=== PATIENT | male | born 1985 | race Caucasian/White ===

== ENCOUNTER 2019-08-05 13:34 | Emergency (ER) | payer OTHER ==
[~2019-08-05] VITALS: Ht 170.2 cm; Wt 63.5 kg
[~2019-08-05 13:34] MED LIST: ALBU90OI INH; AMOCLA875 PO; BUPR100ER PO; Bactrim Ds Tab1 EACH PO; CEPH500 PO; CIPR500 PO; CLIN300 PO; CRUTCH4 USE; Crutch1 EACH MISC; FAMO40 PO; HYDACE5 PO; IBUP800 PO; MESA400ER PO; META800 PO; METR500 PO; ONDA4 PO; ONDA4ODT MM; OXYACE5T PO; PENVK250 PO; PENVK500 PO; PROM25 PO; Percocet 5-3251 EACH PO; RXONDA4ODT MM; RXSULTRIDS PO; RXTRAM50 PO; SULTRIDS PO; SULTRISS PO; TRAM50 PO; TRAZ50
[2019-08-05] MEDS ORDERED: Bactrim Ds Tab1 EACH PO (16:21)
[2019-08-05] MEDS ORDERED: IBUP800 PO (16:21)
[2019-08-05] MEDS ORDERED: ONDA4ODT MM (16:21)
== END 2019-08-05 16:25 | disposition home or self-care (01) ==
LOC: ER 13:34
DX: L03.011 Cellulitis of right finger (principal); Z91.030 Bee allergy status; I10 Essential (primary) hypertension; F17.220 Nicotine dependence, chewing tobacco, uncomplicated
CPT/HCPCS: 99283

== ENCOUNTER 2020-02-18 19:25 | Emergency (ER) | payer SELFPAY ==
[~2020-02-18] VITALS: Ht 170.2 cm; Wt 63.5 kg
[2020-02-18 20:08] LABS: BASOPHILS ABSOLUTE AUTO 0.02 K/mm3 (0.00-0.23); BASOPHILS PERCENT AUTO 0 % (0-2); EOSINOPHILS ABSOLUTE AUTO 0.24 K/mm3 (0.00-0.68); EOSINOPHILS PERCENT AUTO 4 % (0-6); Hematocrit 43.2 % (37.0-53.0); Hemoglobin 14.2 g/dL (13.5-17.5); IMMATURE GRAN ABSOLUTE AUTO 0.02 K/mm3 (0.00-0.10); IMMATURE GRAN PERCENT AUTO 0 % (0-1); LYMPHOCYTES ABSOLUTE AUTO 1.83 K/mm3 (0.84-5.20); LYMPHOCYTES PERCENT AUTO 28 % (21-46); MONOCYTES ABSOLUTE AUTO 0.55 K/mm3 (0.16-1.47); MONOCYTES PERCENT AUTO 9 % (4-13); Mean Corpuscular HGB 28.2 pg (26.0-34.0); Mean Corpuscular HGB Conc 32.9 g/dL (31.5-36.5); Mean Corpuscular Volume 86 fL (80-100); Mean Platelet Volume 9.9 fL (9.1-12.4); NEUTROPHILS PERCENT AUTO 59 % (41-73); Platelet Count 241 K/mm3 (150-400); RDW Coefficient Variation 13.2 % (11.7-14.2); RDW Standard Deviation 40.8 fL (35.1-46.3); Red Blood Cell Count 5.04 M/mm3 (4.30-5.90); White Blood Cell Count 6.46 K/mm3 (4.00-11.30)
[2020-02-18 20:28] LABS: Alanine Aminotransfer (ALT/SGP 45 U/L (12-78); Albumin, Blood 4.1 g/dL (3.4-5.0); Albumin/Globulin Ratio 0.8 (0.8-1.8); Alk Phos 79 U/L (50-136); Anion Gap 5 mmol/L (6-16); Aspartate Aminotrans (AST/SGOT 20 U/L (12-37); Bilirubin, Total 0.7 mg/dL (0.1-1.0); Blood Urea Nitrogen 17 mg/dL (8-24); Bun/Creatinine Ratio 20.7 (12.0-20.0); CO2, Blood 28 mmol/L (21-32); Calcium, Blood 9.2 mg/dL (8.5-10.1); Chloride, Blood 107 mmol/L (98-108); Creatinine, Blood 0.82 mg/dL (0.60-1.20); Globulin, Blood 4.9 g/dL (2.2-4.0); Glomerular Filtration Rate >60 (60-); Glucose, Blood 140 mg/dL (70-99); Potassium, Blood 3.7 mmol/L (3.5-5.5); Sodium, Blood 140 mmol/L (136-145)
[2020-02-18 20:38] LABS: Magnesium, Blood 2.4 mg/dL (1.6-2.4); Troponin I <0.015 ng/mL (0.000-0.040)
== END 2020-02-18 22:03 | disposition home or self-care (01) ==
LOC: ER 19:25
PROVIDERS: Emergency Medicine
DX: Z00.00 Encounter for general adult medical examination without abnormal findings (principal); F41.0 Panic disorder [episodic paroxysmal anxiety]; Z91.030 Bee allergy status; I10 Essential (primary) hypertension; F17.220 Nicotine dependence, chewing tobacco, uncomplicated
CPT/HCPCS: 36415; 71045; 80053; 83735; 84484; 85025; 93005; 93010; 99284-25

== ENCOUNTER 2020-02-24 21:08 | Emergency (ER) | payer SELFPAY ==
[~2020-02-24] VITALS: Ht 165.1 cm; Wt 68.0 kg
== END 2020-02-24 21:21 | disposition left against medical advice (07) ==
LOC: ER 21:08
DX: Z53.21 Procedure and treatment not carried out due to patient leaving prior to being seen by health care provider (principal)

== ENCOUNTER 2020-11-27 00:43 | Emergency (ER) | payer OTHER ==
[~2020-11-27] VITALS: Ht 170.2 cm; Wt 63.5 kg
== END 2020-11-27 01:42 ==
LOC: ER 00:43
DX: S09.90XA Unspecified injury of head, initial encounter (principal); Y04.0XXA Assault by unarmed brawl or fight, initial encounter
CPT/HCPCS: 70450; 71045; 72125; 73110; 90471; 93005; 93010; 99283-25

== ENCOUNTER 2022-11-02 19:16 | Emergency (ER) | payer MEDICAID ==
[~2022-11-02] VITALS: Ht 170.2 cm; Wt 79.4 kg
[2022-11-02 19:22] VITALS: BP 133/100
== END 2022-11-02 19:27 | disposition home or self-care (01) ==
LOC: ER 19:16
DX: F15.10 Other stimulant abuse, uncomplicated (principal); I10 Essential (primary) hypertension; F17.220 Nicotine dependence, chewing tobacco, uncomplicated; Z91.038 Other insect allergy status; Z91.030 Bee allergy status
CPT/HCPCS: 99283

== ENCOUNTER 2022-11-02 21:41 | Emergency (ER) | payer MEDICAID ==
[~2022-11-02] VITALS: Ht 170.2 cm; Wt 72.6 kg
[2022-11-02 22:06] VITALS: BP 143/92
== END 2022-11-02 23:58 | disposition home or self-care (01) ==
LOC: ER 21:41
DX: F15.10 Other stimulant abuse, uncomplicated (principal); R00.2 Palpitations; I10 Essential (primary) hypertension; F17.220 Nicotine dependence, chewing tobacco, uncomplicated
CPT/HCPCS: 99283

== ENCOUNTER 2022-11-08 13:46 | Emergency (ER) | payer SELFPAY ==
[~2022-11-08] VITALS: Ht 170.2 cm; Wt 70.3 kg
[2022-11-08 13:56] VITALS: BP 134/92
== END 2022-11-08 15:50 | disposition home or self-care (01) ==
LOC: ER 13:46
DX: R07.89 Other chest pain (principal); K59.00 Constipation, unspecified; I10 Essential (primary) hypertension; F17.200 Nicotine dependence, unspecified, uncomplicated; Z91.038 Other insect allergy status
CPT/HCPCS: 99284

== ENCOUNTER 2022-11-10 00:14 | Emergency (ER) | payer SELFPAY ==
[~2022-11-10] VITALS: Ht 170.2 cm; Wt 72.6 kg
[2022-11-10 00:40] VITALS: BP 131/85
== END 2022-11-10 01:17 | disposition home or self-care (01) ==
LOC: ER 00:14
DX: F15.122 Other stimulant abuse with intoxication with perceptual disturbance (principal); Z87.891 Personal history of nicotine dependence
CPT/HCPCS: 99282

== ENCOUNTER 2022-11-11 21:58 | Emergency (ER) | payer OTHER ==
[~2022-11-11] VITALS: Ht 165.1 cm; Wt 74.8 kg
[2022-11-11 22:03] VITALS: BP 127/100
== END 2022-11-11 22:23 | disposition home or self-care (01) ==
LOC: ER 21:58
DX: F41.9 Anxiety disorder, unspecified (principal); F15.10 Other stimulant abuse, uncomplicated; I10 Essential (primary) hypertension; F17.220 Nicotine dependence, chewing tobacco, uncomplicated; Z91.038 Other insect allergy status
CPT/HCPCS: A9270

== ENCOUNTER 2022-11-14 09:41 | Emergency (ER) | payer OTHER ==
[~2022-11-14] VITALS: Ht 170.2 cm; Wt 72.6 kg
[2022-11-14 11:02] LABS: BASOPHILS ABSOLUTE AUTO 0.03 K/mm3 (0.00-0.23); BASOPHILS PERCENT AUTO 1 % (0-2); EOSINOPHILS ABSOLUTE AUTO 0.28 K/mm3 (0.00-0.68); EOSINOPHILS PERCENT AUTO 5 % (0-6); Hematocrit 43.3 % (37.0-53.0); IMMATURE GRAN ABSOLUTE AUTO 0.01 K/mm3 (0.00-0.10); IMMATURE GRAN PERCENT AUTO 0 % (0-1); LYMPHOCYTES ABSOLUTE AUTO 1.26 K/mm3 (0.84-5.20); LYMPHOCYTES PERCENT AUTO 21 % (21-46); MONOCYTES PERCENT AUTO 10 % (4-13); Mean Corpuscular HGB 27.7 pg (26.0-34.0); Mean Corpuscular HGB Conc 32.3 g/dL (31.5-36.5); Mean Corpuscular Volume 86 fL (80-100); Mean Platelet Volume 10.2 fL (9.1-12.4); NEUTROPHILS ABSOLUTE AUTO 3.89 K/mm3 (1.96-9.15); NEUTROPHILS PERCENT AUTO 64 % (41-73); Platelet Count 253 K/mm3 (150-400); RDW Coefficient Variation 13.7 % (11.7-14.2); RDW Standard Deviation 43.2 fL (35.1-46.3); Red Blood Cell Count 5.05 M/mm3 (4.30-5.90); White Blood Cell Count 6.07 K/mm3 (4.00-11.30)
[2022-11-14 11:18] LABS: Albumin, Blood 3.8 g/dL (3.4-5.0); Albumin/Globulin Ratio 1.2 (0.8-1.8); Bilirubin, Total 0.8 mg/dL (0.1-1.0); Bun/Creatinine Ratio 23.6 (12.0-20.0); Calcium, Blood 8.8 mg/dL (8.5-10.1); Creatinine, Blood 0.89 mg/dL (0.60-1.20); Globulin, Blood 3.2 g/dL (2.2-4.0)
[2022-11-14 14:05] VITALS: BP 111/81
== END 2022-11-14 14:10 | disposition home or self-care (01) ==
LOC: ER 09:41
PROVIDERS: Physician Assistant
DX: F41.0 Panic disorder [episodic paroxysmal anxiety] (principal); F15.90 Other stimulant use, unspecified, uncomplicated; R07.89 Other chest pain; I10 Essential (primary) hypertension; F17.220 Nicotine dependence, chewing tobacco, uncomplicated; Z91.038 Other insect allergy status
CPT/HCPCS: 71045; 80053; 83880; 84484; 85025; 93005; 93010; J1790

== ENCOUNTER 2022-11-26 21:34 | Emergency (ER) | payer OTHER ==
[~2022-11-26] VITALS: Ht 167.6 cm; Wt 72.6 kg
[2022-11-26 21:41] VITALS: BP 133/93
== END 2022-11-26 22:15 | disposition home or self-care (01) ==
LOC: ER 21:34
DX: F41.9 Anxiety disorder, unspecified (principal); F15.90 Other stimulant use, unspecified, uncomplicated; R07.81 Pleurodynia; I10 Essential (primary) hypertension; F17.220 Nicotine dependence, chewing tobacco, uncomplicated; Z91.030 Bee allergy status
CPT/HCPCS: 99283

== ENCOUNTER 2022-12-23 13:05 | Emergency (ER) | payer OTHER ==
[~2022-12-23] VITALS: Ht 167.6 cm; Wt 65.8 kg
[2022-12-23 13:49] LABS: BASOPHILS ABSOLUTE AUTO 0.03 K/mm3 (0.00-0.23); BASOPHILS PERCENT AUTO 0 % (0-2); EOSINOPHILS ABSOLUTE AUTO 0.18 K/mm3 (0.00-0.68); EOSINOPHILS PERCENT AUTO 2 % (0-6); Hematocrit 40.7 % (37.0-53.0); Hemoglobin 13.8 g/dL (13.5-17.5); IMMATURE GRAN ABSOLUTE AUTO 0.02 K/mm3 (0.00-0.10); IMMATURE GRAN PERCENT AUTO 0 % (0-1); LYMPHOCYTES ABSOLUTE AUTO 1.89 K/mm3 (0.84-5.20); LYMPHOCYTES PERCENT AUTO 24 % (21-46); MONOCYTES ABSOLUTE AUTO 0.78 K/mm3 (0.16-1.47); MONOCYTES PERCENT AUTO 10 % (4-13); Mean Corpuscular HGB 28.9 pg (26.0-34.0); Mean Corpuscular HGB Conc 33.9 g/dL (31.5-36.5); Mean Corpuscular Volume 85 fL (80-100); NEUTROPHILS ABSOLUTE AUTO 5.04 K/mm3 (1.96-9.15); NEUTROPHILS PERCENT AUTO 63 % (41-73); Platelet Count 287 K/mm3 (150-400); RDW Coefficient Variation 13.3 % (11.7-14.2); RDW Standard Deviation 41.4 fL (35.1-46.3); Red Blood Cell Count 4.78 M/mm3 (4.30-5.90); White Blood Cell Count 7.94 K/mm3 (4.00-11.30)
[2022-12-23 13:51] VITALS: BP 126/75
[2022-12-23 14:12] LABS: Albumin, Blood 3.8 g/dL (3.4-5.0); Albumin/Globulin Ratio 1.1 (0.8-1.8); Bilirubin, Total 0.9 mg/dL (0.1-1.0); Bun/Creatinine Ratio 22.5 (12.0-20.0); Calcium, Blood 8.9 mg/dL (8.5-10.1); Creatinine, Blood 1.02 mg/dL (0.60-1.20); Globulin, Blood 3.4 g/dL (2.2-4.0); Potassium, Blood 3.5 mmol/L (3.5-5.5); Total Protein, Blood 7.2 g/dL (6.4-8.2)
== END 2022-12-23 15:40 | disposition home or self-care (01) ==
LOC: ER 13:05
PROVIDERS: Emergency Medicine
DX: R07.9 Chest pain, unspecified (principal); F15.129 Other stimulant abuse with intoxication, unspecified; F17.210 Nicotine dependence, cigarettes, uncomplicated; Z91.030 Bee allergy status; Z91.09 Other allergy status, other than to drugs and biological substances
CPT/HCPCS: 36415; 71045; 80053; 83880; 84484; 85025; 93005; 93010; 99284-25; J1885

== ENCOUNTER 2022-12-27 14:13 | Emergency (ER) | payer OTHER ==
[~2022-12-27] VITALS: Ht 172.7 cm; Wt 81.7 kg
[2022-12-27 14:28] VITALS: BP 152/104
== END 2022-12-27 15:31 | disposition home or self-care (01) ==
LOC: ER 14:13
DX: F15.129 Other stimulant abuse with intoxication, unspecified (principal); Z91.030 Bee allergy status; F17.210 Nicotine dependence, cigarettes, uncomplicated
CPT/HCPCS: 93005; 93010; 99283-25

== ENCOUNTER 2023-01-22 10:39 | Emergency (ER) | payer OTHER ==
[~2023-01-22] VITALS: Ht 170.2 cm; Wt 68.0 kg
[2023-01-22 10:43] VITALS: BP 125/96
== END 2023-01-22 11:01 | disposition home or self-care (01) ==
LOC: ER 10:39
DX: F15.229 Other stimulant dependence with intoxication, unspecified (principal); F17.210 Nicotine dependence, cigarettes, uncomplicated; Z91.030 Bee allergy status
CPT/HCPCS: 99283

== ENCOUNTER 2023-03-03 21:16 | Emergency (ER) | payer OTHER ==
[~2023-03-03] VITALS: Ht 170.2 cm; Wt 72.6 kg
[2023-03-03 21:22] VITALS: BP 157/109
== END 2023-03-03 21:30 | disposition home or self-care (01) ==
LOC: ER 21:16
DX: S05.11XA Contusion of eyeball and orbital tissues, right eye, initial encounter (principal); S09.90XA Unspecified injury of head, initial encounter; I10 Essential (primary) hypertension; Z91.030 Bee allergy status; Y04.8XXA Assault by other bodily force, initial encounter
CPT/HCPCS: 99282

== ENCOUNTER 2023-04-07 18:45 | Emergency (ER) | payer OTHER ==
[~2023-04-07] VITALS: Ht 172.7 cm; Wt 74.8 kg
[2023-04-07 18:54] VITALS: BP 125/82
== END 2023-04-07 19:00 | disposition home or self-care (01) ==
LOC: ER 18:45
DX: R51.9 Headache, unspecified (principal); I10 Essential (primary) hypertension; Z91.030 Bee allergy status
CPT/HCPCS: 99282

== ENCOUNTER 2023-04-12 11:06 | Emergency (ER) | payer OTHER ==
[~2023-04-12] VITALS: Ht 170.2 cm; Wt 68.0 kg
[2023-04-12 11:50] VITALS: BP 107/90
== END 2023-04-12 12:45 | disposition left against medical advice (07) ==
LOC: ER 11:06
DX: R07.9 Chest pain, unspecified (principal); F15.90 Other stimulant use, unspecified, uncomplicated; Z53.21 Procedure and treatment not carried out due to patient leaving prior to being seen by health care provider
CPT/HCPCS: 71046; 93005; 93010; 99282-25

== ENCOUNTER 2023-04-12 15:11 | Emergency (ER) | payer OTHER | END 2023-04-12 15:25 | disposition left against medical advice (07) | LOC: ER 15:11 | DX: R06.02 Shortness of breath (principal); S61.412A Laceration without foreign body of left hand, initial encounter; X58.XXXA Exposure to other specified factors, initial encounter; Z53.21 Procedure and treatment not carried out due to patient leaving prior to being seen by health care provider | CPT/HCPCS: 99281 ==

== ENCOUNTER 2023-04-17 15:45 | Emergency (ER) | payer OTHER ==
[~2023-04-17] VITALS: Ht 170.2 cm; Wt 68.0 kg
[2023-04-17 15:55] VITALS: BP 129/93
== END 2023-04-17 17:07 | disposition left against medical advice (07) ==
LOC: ER 15:45
DX: R11.2 Nausea with vomiting, unspecified (principal); R07.9 Chest pain, unspecified; R10.9 Unspecified abdominal pain; Z53.21 Procedure and treatment not carried out due to patient leaving prior to being seen by health care provider
CPT/HCPCS: 99281

== ENCOUNTER 2023-06-11 04:40 | Emergency (ER) | payer OTHER ==
[~2023-06-11] VITALS: Ht 167.6 cm; Wt 72.6 kg
[2023-06-11 04:49] VITALS: BP 136/91
== END 2023-06-11 06:32 | disposition home or self-care (01) ==
LOC: ER 04:40
DX: R10.84 Generalized abdominal pain (principal); R11.0 Nausea; I10 Essential (primary) hypertension; F17.220 Nicotine dependence, chewing tobacco, uncomplicated; Z53.29 Procedure and treatment not carried out because of patient's decision for other reasons
CPT/HCPCS: 99283; A9270

== ENCOUNTER 2023-06-30 19:29 | Emergency (ER) | payer OTHER ==
[~2023-06-30] VITALS: Ht 170.2 cm; Wt 72.6 kg
[2023-06-30 19:57] VITALS: BP 116/99
== END 2023-06-30 21:25 | disposition left against medical advice (07) ==
LOC: ER 19:29
DX: R10.12 Left upper quadrant pain (principal); I10 Essential (primary) hypertension; F17.220 Nicotine dependence, chewing tobacco, uncomplicated; Z53.29 Procedure and treatment not carried out because of patient's decision for other reasons; Z91.030 Bee allergy status
CPT/HCPCS: 99283

== ENCOUNTER 2023-08-12 03:14 | Emergency (ER) | payer OTHER ==
[~2023-08-12] VITALS: Ht 165.1 cm; Wt 63.5 kg
[2023-08-12 03:44] VITALS: BP 140/90
[2023-08-12] MEDS ORDERED: Acetaminophen 500 MG Tab PO ONE (04:00)
[2023-08-12] MEDS ORDERED: Ibuprofen 600 MG Tab PO ONE (04:00)
== END 2023-08-12 04:13 | disposition home or self-care (01) ==
LOC: ER 03:14
DX: G44.209 Tension-type headache, unspecified, not intractable (principal); G43.909 Migraine, unspecified, not intractable, without status migrainosus; I10 Essential (primary) hypertension; F17.220 Nicotine dependence, chewing tobacco, uncomplicated
CPT/HCPCS: 99283; A9270

== ENCOUNTER 2023-08-12 17:42 | Emergency (ER) | payer OTHER ==
[~2023-08-12] VITALS: Ht 170.2 cm; Wt 72.6 kg
[2023-08-12 18:20] VITALS: BP 152/89
== END 2023-08-12 18:24 | disposition home or self-care (01) ==
LOC: ER 17:42
DX: R07.89 Other chest pain (principal); I10 Essential (primary) hypertension; F17.220 Nicotine dependence, chewing tobacco, uncomplicated; Z91.030 Bee allergy status
CPT/HCPCS: 99282

== ENCOUNTER 2025-05-18 02:08 | Emergency (ER) | payer OTHER ==
[~2025-05-18] VITALS: Ht 162.6 cm; Wt 68.0 kg
[2025-05-18 02:15] VITALS: BP 129/89
== END 2025-05-18 02:32 | disposition home or self-care (01) ==
LOC: ER 02:08
DX: F15.10 Other stimulant abuse, uncomplicated (principal); F41.9 Anxiety disorder, unspecified; R07.89 Other chest pain; Z91.038 Other insect allergy status; Z87.891 Personal history of nicotine dependence; Z53.29 Procedure and treatment not carried out because of patient's decision for other reasons
CPT/HCPCS: 93005; 93010; 99283-25